=== PATIENT | female | born 1990 | race Caucasian/White ===

== ENCOUNTER 2022-02-28 01:52 | Inpatient (IN) | payer OTHER, SELFPAY ==
[2022-02-28 01:17] VITALS: BMI 22.6
[~2022-02-28 01:52] MED LIST: Acetaminophen 500 MG TAB PO PRN; Docusate 100 MG CAP PO PRN; Lidocaine 1% (PF) 30 ML VIAL SC PRN; Misoprostol 200 MCG TAB PR PRN; Ondansetron PF 4 MG/2 ML Vial IVP PRN; Promethazine HCl 25 MG/ML VIAL IM PRN; hydrALAZINE 20 MG/ML VIAL SLOW IVP PRN
[2022-02-28] MEDS ORDERED: Fentanyl 2 mcg/Bup 0.1% Cadd 100 ML ONE (02:53)
[2022-02-28 03:02] LABS: Syphilis Antibody Nonreactive (Nonreactive); Syphilis Antibody Index 0.04 S/CO (<1.00 Non-Reactive)
[2022-02-28 03:03] LABS: HBSAg Index 0.18 S/CO (0-0.99); Hep B Surf Ag Non-Reactive S/CO (NonReactive)
[2022-02-28 03:11] LABS: Mean Corpuscular HGB CONC 32.9 g/dL (32.0-36.0); Mean Corpuscular Hemoglobin 27.2 pg (27.0-33.0); Mean Corpuscular Volume 82.7 fl (81.6-98.3); Mean Platelet Volume 10.5 fl (7.4-10.4); Platelet Count 222 10x3/uL (150-450); RBC Distribution Width 13.7 % (11.5-14.5); Red Blood Cell (RBC) Count 4.04 10x6/uL (3.90-5.03)
[2022-02-28] MEDS: Lactated Ringer's 1,000 ML IV SCH ×3 (04:20→12:58)
[2022-02-28] MEDS ORDERED: Moisturizing Cream (Eucerin) 113 GM JAR TOP PRN (04:37)
[2022-02-28] MEDS ORDERED: Naloxone HCl 0.4 mg/ml Vial IVP PRN ×2 (04:37)
[2022-02-28] MEDS ORDERED: Promethazine HCl 25 MG/ML VIAL IM PRN (04:37)
[2022-02-28] MEDS ORDERED: diphenhydrAMINE 50 MG/ML VIAL IVP PRN (04:37)
[2022-02-28] MEDS ORDERED: ePHEDrine Sulfate 50 MG/10 ML VIAL SLOW IVP PRN (04:37)
[2022-02-28] MEDS ORDERED: Ondansetron PF 4 MG/2 ML Vial IVP PRN ×2 (04:37→14:34)
[2022-02-28] MEDS ORDERED: Acetaminophen 325 MG TAB PO PRN (04:37)
[2022-02-28] MEDS ORDERED: Communication Order-Pharmacy FS SCH (04:45)
[2022-02-28] MEDS ORDERED: Fentanyl 2 mcg/Bupivacaine 0.1% Cassette 100 ML EPIDURAL SCH (04:45)
[2022-02-28] MEDS ORDERED: CEFAZOLIN 2 GM VIAL ONE (06:02)
[2022-02-28] MEDS ORDERED: Famotidine/PF 20 mg/2ml Vial ONE (06:03)
[2022-02-28] MEDS ORDERED: Lactated Ringer's 500 ML IV PRN (06:53)
[2022-02-28] MEDS: NS w/ Oxytocin 30 units 500 ML IV SCH ×2 (12:16→12:58)
[2022-02-28] MEDS: Ibuprofen 800 MG TAB PO PRN ×2 (13:53→14:02)
[2022-02-28] MEDS ORDERED: Bupivacaine/Epinephrine 0.25% 30 ML VIAL ONE (13:56)
[2022-02-28] MEDS ORDERED: Bisacodyl 10 MG SUPP PR PRN (14:34)
[2022-02-28] MEDS ORDERED: diphenhydrAMINE 25 MG CAP PO PRN (14:34)
[2022-02-28] MEDS ORDERED: Benzocaine-Menthol 82.5 ML CAN TOP PRN (14:34)
[2022-02-28] MEDS ORDERED: Boostrix 0.5 ML (Tdap) VIAL (>/=7 yrs of age) IM ONE (14:34)
[2022-02-28] MEDS ORDERED: Milk Of Magnesia 30 ML UDCUP PO PRN (14:34)
[2022-02-28] MEDS ORDERED: Lanolin Ointment 7 GM TUBE TOP PRN (14:34)
[2022-02-28] MEDS ORDERED: NS w/ Oxytocin 30 units 500 ML IV SCH (14:34)
[2022-02-28] MEDS ORDERED: HYDROcodone/Acetaminophen 5/325 mg Tablet PO PRN ×2 (14:34)
[2022-02-28] MEDS ORDERED: Preparation H Ointment 28 GM TUBE PR PRN (14:34)
[2022-02-28] MEDS ORDERED: hydrALAZINE 20 MG/ML VIAL SLOW IVP PRN (14:34)
[2022-02-28] MEDS: Ferrous Sulfate 325 MG TAB PO SCH (17:54)
[2022-02-28] MEDS: Ibuprofen 800 MG TAB PO SCH (21:07)
[2022-02-28] MEDS: Docusate 100 MG CAP PO SCH (21:07)
[2022-03-01 04:14] VITALS: TEMP 97.9
[2022-03-01] MEDS: Ibuprofen 800 MG TAB PO SCH ×2 (05:30→13:29)
[2022-03-01] MEDS: Docusate 100 MG CAP PO SCH (08:07)
[2022-03-01] MEDS: Ferrous Sulfate 325 MG TAB PO SCH (08:08)
[2022-03-01] MEDS ORDERED: Prenatal Vitamin 1 TAB PO SCH (09:00)
[2022-03-01 12:09] VITALS: BP 108/61
== END 2022-03-01 14:44 | disposition home or self-care (01) | DRG 807 ==
LOC: CSHLD/OP 01:52 → CSHPP 14:52
PROVIDERS: ADMIT Obstetrics & Gynecology; ATTEND Obstetrics & Gynecology
PROC: 10E0XZZ Delivery of Products of Conception, External Approach (ICD-10-PCS; principal; 2022-02-28)
PROC: 0HQ9XZZ Repair Perineum Skin, External Approach (ICD-10-PCS; 2022-02-28)
DX: O69.81X0 Labor and delivery complicated by cord around neck, without compression, not applicable or unspecified (principal); Z37.0 Single live birth; Z3A.40 40 weeks gestation of pregnancy; O70.0 First degree perineal laceration during delivery; Z88.8 Allergy status to other drugs, medicaments and biological substances
CPT/HCPCS: 51702; 85027; 86780; 86850; 86900; 86901; 87340; 99285; J2590; J7120

== ENCOUNTER 2024-01-08 22:37 | Inpatient (IN) | payer OTHER, SELFPAY ==
[2024-01-08 23:11] VITALS: BMI 22.1
[2024-01-08] MEDS ORDERED: Misoprostol 200 MCG TAB RC PRN (23:15)
[2024-01-08] MEDS ORDERED: Oxytocin 30 units/NS 500 ML 500 ML IVPB SCH (23:15)
[2024-01-08] MEDS ORDERED: Lidocaine 1% (PF) 30 ML VIAL SC PRN (23:15)
[2024-01-08] MEDS ORDERED: Methylergonovine 0.2 MG/ML VIAL IM PRN (23:15)
[2024-01-08 23:16] LABS: Hematocrit 38.3 % (34.9-44.5); Hemoglobin 12.3 g/dL (12.0-15.5); Mean Corpuscular HGB CONC 32.1 g/dL (32.0-36.0); Mean Corpuscular Hemoglobin 26.5 pg (27.0-33.0); Mean Corpuscular Volume 82.4 fL (81.6-98.3); Mean Platelet Volume 10.8 fL (7.4-10.4); Platelet Count 249 10x3/uL (150-450); RBC Distribution Width 16.4 % (11.5-14.5); Red Blood Cell (RBC) Count 4.65 10x6/uL (3.90-5.03)
[2024-01-08] MEDS ORDERED: fentaNYL 50 mcg/mL 1 mL Vial SLOW IVP PRN (23:17)
[2024-01-08] MEDS ORDERED: Tranexamic Acid 1,000 MG/10 ML VIAL IVP PRN (23:17)
[2024-01-08] MEDS: Oxytocin 30 units/NS 500 ML 500 ML ONE (23:18)
[2024-01-08] MEDS ORDERED: diphenhydrAMINE 25 MG CAP PO PRN (23:25)
[2024-01-08] MEDS ORDERED: Milk Of Magnesia 30 ML UDCUP PO PRN (23:25)
[2024-01-08] MEDS ORDERED: Ondansetron PF 4 MG/2 ML Vial IVP PRN ×2 (23:25→23:30)
[2024-01-08] MEDS ORDERED: Promethazine HCl 25 MG/ML VIAL IM PRN ×2 (23:25→23:30)
[2024-01-08] MEDS ORDERED: HYDROcodone/Acetaminophen 5/325 mg Tablet PO PRN (23:25)
[2024-01-08] MEDS ORDERED: Benzocaine-Menthol 82.5 ML CAN TOP PRN (23:25)
[2024-01-08] MEDS ORDERED: Bisacodyl 10 MG SUPP PR PRN (23:25)
[2024-01-08] MEDS ORDERED: Preparation H Ointment 28 GM TUBE PR PRN (23:25)
[2024-01-08] MEDS ORDERED: hydrALAZINE 20 MG/ML VIAL SLOW IVP PRN ×2 (23:25→23:30)
[2024-01-08] MEDS: Acetaminophen 500 MG TAB PO PRN (23:29)
[2024-01-08] MEDS: Ibuprofen 800 MG TAB PO PRN (23:29)
[2024-01-08] MEDS ORDERED: Oxytocin 30 units/NS 500 ML 500 ML IV SCH (23:30)
[2024-01-08] MEDS ORDERED: Lactated Ringer's 1,000 ML IV SCH (23:30)
[2024-01-08 23:50] LABS: Syphilis Antibody Nonreactive (Nonreactive); Syphilis Antibody Index 0.04 S/CO (<1.00 Non-Reactive)
[2024-01-08 23:52] LABS: HBsAg Index 0.17 S/CO (0-0.99); Hep B Surf Ag - L&D Non-Reactive S/CO (NonReactive)
[2024-01-09] MEDS: Methylergonovine 0.2 MG/ML VIAL ONE (01:58)
[2024-01-09] MEDS: Lidocaine 1% (PF) 30 ML VIAL ONE (01:59)
[2024-01-09 04:52] LABS: Hematocrit 33.1 % (34.9-44.5); Hemoglobin 10.7 g/dL (12.0-15.5); Mean Corpuscular HGB CONC 32.3 g/dL (32.0-36.0); Mean Corpuscular Hemoglobin 26.6 pg (27.0-33.0); Mean Corpuscular Volume 82.1 fL (81.6-98.3); Mean Platelet Volume 10.8 fL (7.4-10.4); Platelet Count 205 10x3/uL (150-450); RBC Distribution Width 16.4 % (11.5-14.5); Red Blood Cell (RBC) Count 4.03 10x6/uL (3.90-5.03); White Blood Cell (WBC) Count 10.4 10x3/uL (3.5-10.5)
[2024-01-09] MEDS: Ibuprofen 800 MG TAB PO SCH (05:55)
[2024-01-09] MEDS: Boostrix 0.5 ML (Tdap) VIAL (>/=7 yrs of age) IM ONE (07:30)
[2024-01-09] MEDS: Ferrous Sulfate 325 MG TAB PO SCH (08:29)
[2024-01-09] MEDS: Docusate 100 MG CAP PO SCH (08:29)
[2024-01-10 07:27] VITALS: BP 121/77; TEMP 97.7
== END 2024-01-10 11:35 | disposition home or self-care (01) | DRG 807 ==
LOC: CSHLD/OP 22:37 → CSHLD 22:59 → CSHPP 01-09 01:40
PROVIDERS: ADMIT Obstetrics & Gynecology; ATTEND Obstetrics & Gynecology
PROC: 10E0XZZ Delivery of Products of Conception, External Approach (ICD-10-PCS; principal; 2024-01-08)
DX: O99.02 Anemia complicating childbirth (principal); Z37.0 Single live birth; Z3A.38 38 weeks gestation of pregnancy; Z88.8 Allergy status to other drugs, medicaments and biological substances
CPT/HCPCS: 36415; 85027; 86780; 86850; 86900; 86901; 87340; 99285; J2590